=== PATIENT | female | born 1955 | race Caucasian/White ===

== ENCOUNTER 2018-04-09 17:54 | Emergency (ER) | payer OTHER ==
[2018-04-09 22:32] LABS: ADD MAN DIFF? NO
[2018-04-09 22:44] LABS: BASOPHIL # 0.1 10^3/ul (0.0-0.1); BASOPHILS % 0.7 % (0.0-2.0); EOSINOPHILS # 0.2 10^3/ul (0.0-0.5); EOSINOPHILS % 2.3 % (0.0-7.0); HEMATOCRIT 40.2 % (37.0-47.0); HEMOGLOBIN 12.9 g/dl (12.0-16.0); LYMPHOCYTES # 2.2 10^3/ul (0.8-2.9); LYMPHOCYTES % 32.3 % (15.0-51.0); MEAN CORPUSCULAR HEMOGLOBIN 29.7 pg (29.0-33.0); MEAN CORPUSCULAR HGB CONC 32.1 g/dl (32.0-37.0); MEAN CORPUSCULAR VOLUME 92.4 fl (82.0-101.0); MEAN PLATELET VOLUME 11.4 fl (7.4-10.4); MONOCYTE # 0.4 10^3/ul (0.3-0.9); MONOCYTES % 5.7 % (0.0-11.0); NEUTROPHILS % 58.9 % (39.0-77.0); PLATELET COUNT 216 10^3/UL (140-415); RED BLOOD COUNT 4.35 10^6/ul (4.20-5.40); RED CELL DISTRIBUTION WIDTH 12.6 % (11.5-14.5)
[2018-04-09 22:44] LABS: WHITE BLOOD COUNT 6.9 10^3/ul (4.8-10.8)
[2018-04-09 22:49] LABS: ADD UMIC NO; UR ASCORBIC ACID 20 mg/dL (NEGATIVE); UR BILIRUBIN (Dip) NEGATIVE (NEGATIVE); UR BLOOD (Dip) NEGATIVE (NEGATIVE); UR CLARITY CLEAR (CLEAR); UR COLOR STRAW (YELLOW); UR GLUCOSE (Dip) NEGATIVE (NEGATIVE); UR KETONES (Dip) NEGATIVE (NEGATIVE); UR LEUKOCYTE ESTERASE (Dip) NEGATIVE Leu/ul (NEGATIVE); UR NITRITE (Dip) NEGATIVE (NEGATIVE); UR SPECIFIC GRAVITY (Dip) 1.014 (1.003-1.030); UR TOTAL PROTEIN (Dip) NEGATIVE (NEGATIVE); UR UROBILINOGEN (Dip) NEGATIVE (NEGATIVE)
[2018-04-09 23:07] LABS: ALANINE AMINOTRANSFERASE 33 IU/L (13-69); ALBUMIN 4.1 g/dl (3.3-4.9); ALBUMIN/GLOBULIN RATIO 1.24; ALKALINE PHOSPHATASE 64 IU/L (42-121); ANION GAP 13 (8-16); ASPARTATE AMINO TRANSFERASE 24 IU/L (15-46); BILIRUBIN,INDIRECT 0.2 mg/dl (0-1.1); BILIRUBIN,TOTAL 0.2 mg/dl (0.2-1.3); BLOOD UREA NITROGEN 16 mg/dl (7-20); CALCIUM 9.5 mg/dl (8.4-10.2); CARBON DIOXIDE 30 mmol/L (21-31); CHLORIDE 106 mmol/L (97-110); CREATININE 0.79 mg/dl (0.44-1.00); GLUCOSE 77 mg/dl (70-220); LIPASE 143 U/L (23-300); POTASSIUM 3.5 mmol/L (3.5-5.1); SODIUM 145 mmol/L (135-144); TOTAL PROTEIN 7.4 g/dl (6.1-8.1)
[2018-04-09] MEDS: ONDANSETRON 4 MG INJ IV (23:17)
[2018-04-09] MEDS: morphine 4 MG/ML VIAL IV (23:17)
== END 2018-04-10 00:11 | disposition home or self-care (01) ==
LOC: E/R 04-10 00:11
DX: R10.31 Right lower quadrant pain (principal); R40.2142 Coma scale, eyes open, spontaneous, at arrival to emergency department; R40.2252 Coma scale, best verbal response, oriented, at arrival to emergency department; R40.2362 Coma scale, best motor response, obeys commands, at arrival to emergency department
CPT/HCPCS: 36415; 74176; 80053; 81003; 83690; 85025; 96374; 96375; 99285-25

== ENCOUNTER 2018-08-27 08:06 | Day surgery (SDC) | payer OTHER ==
[2018-08-27] MEDS: MOXIFLOXACIN 0.5% 3 ML OPH OPER (08:48)
[2018-08-27] MEDS: PHENYLephrine 10% 5 ML OPH OPER (08:49)
[2018-08-27] MEDS: CYCLOPENTOLATE 2% 2 ML OPH OPER (08:49)
[2018-08-27] MEDS: NEPAFENAC 0.1% 3 ML OPH OPER (08:49)
[2018-08-27] MEDS ORDERED: LACTATED RINGER'S 1,000 ML IV (09:30)
[2018-08-27] MEDS ORDERED: BUPIVACAINE 0.75% (MPF) 10 ML INJ (10:30)
[2018-08-27] MEDS ORDERED: EPINEPHrine 1 MG INJ (10:31)
[2018-08-27] MEDS ORDERED: NA BICARBONATE 8.4% 50 ML SYG (10:31)
[2018-08-27] MEDS ORDERED: METOCLOPRAMIDE 10 MG INJ IV (11:00)
[2018-08-27] MEDS ORDERED: ONDANSETRON 4 MG INJ IV (11:00)
[2018-08-27] MEDS ORDERED: HYDROmorphONE 1 MG/5 ML IV SYRINGE IV ×2 (11:00)
[2018-08-27] MEDS ORDERED: ALBUTEROL 0.083% (NEB) 2.5 MG/3 ML AMP HHN (11:00)
[2018-08-27] MEDS ORDERED: MEPERIDINE 25 MG INJ IV (11:00)
[2018-08-27] MEDS ORDERED: DIPHENHYDRAMINE 50 MG INJ IV (11:00)
[2018-08-27] MEDS ORDERED: FENTAnyl 50 MCG/ML VIAL IV ×2 (11:00)
[2018-08-27] MEDS: LIDOCAINE 1% (MPF) 5 ML VIAL INJ (11:15)
[2018-08-27] MEDS ORDERED: LIDOCAINE 100 MG SYRINGE (11:28)
[2018-08-27] MEDS ORDERED: FENTAnyl 50 MCG/ML VIAL (11:28)
[2018-08-27] MEDS ORDERED: PROPOFOL 20 ML (11:28)
[2018-08-27] MEDS ORDERED: TIMOLOL 0.5% 5 ML OPH (12:15)
[2018-08-27] MEDS ORDERED: CARBACHOL 0.01% 1.5 ML OPH INJ (12:19)
[2018-08-27] MEDS: CARBACHOL 0.01% 1.5 ML OPH INJ RIGHT EYE (12:30)
[2018-08-27] MEDS: TIMOLOL 0.5% 5 ML OPH RIGHT EYE (12:45)
== END 2018-08-27 16:27 | disposition home or self-care (01) ==
LOC: SDS 08:06
DX: H25.11 Age-related nuclear cataract, right eye (principal)
CPT/HCPCS: 66984

== ENCOUNTER 2018-09-19 19:03 | Emergency (ER) | payer OTHER ==
[2018-09-19] MEDS: HYDROCODONE/APAP (10/325) TAB PO (19:20)
[2018-09-19] MEDS: ONDANSETRON (ODT) 4 MG TAB ODT (19:20)
[2018-09-19] MEDS: morphine 4 MG/ML VIAL IM (21:18)
== END 2018-09-19 22:24 | disposition home or self-care (01) ==
LOC: E/R 19:03
DX: S80.01XA Contusion of right knee, initial encounter (principal); V18.4XXA Pedal cycle driver injured in noncollision transport accident in traffic accident, initial encounter
CPT/HCPCS: 73562; 73700; 96372; 99285-25

== ENCOUNTER 2018-10-15 17:48 | Emergency (ER) | payer OTHER ==
[2018-10-15 21:26] LABS: ADD UMIC YES; UR ASCORBIC ACID 20 mg/dL (NEGATIVE); UR BILIRUBIN (Dip) NEGATIVE (NEGATIVE); UR BLOOD (Dip) 1+ mg/dL (NEGATIVE); UR CLARITY CLEAR (CLEAR); UR COLOR YELLOW (YELLOW); UR GLUCOSE (Dip) NEGATIVE (NEGATIVE); UR KETONES (Dip) TRACE mg/dL (NEGATIVE); UR LEUKOCYTE ESTERASE (Dip) NEGATIVE Leu/ul (NEGATIVE); UR MUCUS FEW /HPF (NONE SEEN); UR NITRITE (Dip) NEGATIVE (NEGATIVE); UR RBC 3 /HPF (0-5); UR SPECIFIC GRAVITY (Dip) 1.027 (1.003-1.030); UR TOTAL PROTEIN (Dip) NEGATIVE (NEGATIVE); UR UROBILINOGEN (Dip) NEGATIVE (NEGATIVE); UR WBC 2 /HPF (0-5)
[2018-10-15] MEDS: SOD CHLORIDE 0.9% 500 ML IV (21:43)
[2018-10-15 21:52] LABS: ADD MAN DIFF? NO
[2018-10-15 21:53] LABS: BASOPHILS % 0.7 % (0.0-2.0); EOSINOPHILS # 0.2 10^3/ul (0.0-0.5); EOSINOPHILS % 2.5 % (0.0-7.0); HEMATOCRIT 38.9 % (37.0-47.0); HEMOGLOBIN 12.4 g/dl (12.0-16.0); LYMPHOCYTES # 1.8 10^3/ul (0.8-2.9); LYMPHOCYTES % 30.6 % (15.0-51.0); MEAN CORPUSCULAR HEMOGLOBIN 29.2 pg (29.0-33.0); MEAN CORPUSCULAR HGB CONC 31.9 g/dl (32.0-37.0); MEAN CORPUSCULAR VOLUME 91.5 fl (82.0-101.0); MEAN PLATELET VOLUME 10.7 fl (7.4-10.4); MONOCYTE # 0.4 10^3/ul (0.3-0.9); NEUTROPHIL # 3.6 10^3/ul (1.6-7.5); PLATELET COUNT 228 10^3/UL (140-415); RED BLOOD COUNT 4.25 10^6/ul (4.20-5.40); RED CELL DISTRIBUTION WIDTH 12.7 % (11.5-14.5)
[2018-10-15 22:16] LABS: INR 0.88; PT RATIO 0.9
[2018-10-15 22:17] LABS: PARTIAL THROMBOPLASTIN TIME 28.4 Sec (23.0-35.0)
[2018-10-15 22:19] LABS: ALANINE AMINOTRANSFERASE 23 IU/L (13-69); ALBUMIN/GLOBULIN RATIO 1.21; ALKALINE PHOSPHATASE 74 IU/L (42-121); ANION GAP 9 (5-13); ASPARTATE AMINO TRANSFERASE 24 IU/L (15-46); BILIRUBIN,INDIRECT 0.2 mg/dl (0-1.1); BILIRUBIN,TOTAL 0.2 mg/dl (0.2-1.3); BLOOD UREA NITROGEN 21 mg/dl (7-20); CALCIUM 9.1 mg/dl (8.4-10.2); CARBON DIOXIDE 29 mmol/L (21-31); CHLORIDE 106 mmol/L (97-110); CREATININE 0.81 mg/dl (0.44-1.00); Estimated GFR > 60 mL/min (>60); GLUCOSE 108 mg/dl (70-220); POTASSIUM 3.4 mmol/L (3.5-5.1); SODIUM 144 mmol/L (135-144); TOTAL PROTEIN 7.3 g/dl (6.1-8.1)
[2018-10-15 22:30] LABS: B-TYPE NATRIURETIC PEPTIDE 54 PG/ML (0-125); TROPONIN-I < 0.012 ng/ml (0.000-0.120)
== END 2018-10-16 00:09 | disposition home or self-care (01) ==
LOC: FTE 10-16 00:09
DX: L03.116 Cellulitis of left lower limb (principal); L03.115 Cellulitis of right lower limb; R53.1 Weakness; R07.9 Chest pain, unspecified
CPT/HCPCS: 71046; 80053; 81001; 83880; 84484; 85025; 85610; 85730; 87086; 93005; 93970; 99285-25

== ENCOUNTER 2018-10-19 20:04 | Emergency (ER) | payer OTHER | END 2018-10-19 22:11 | disposition home or self-care (01) | LOC: FTE 20:04 | DX: L30.9 Dermatitis, unspecified (principal) | CPT/HCPCS: 99282; Z7502 ==